=== PATIENT | male | born 2000 | race Two or more races ===

== ENCOUNTER 2021-07-11 14:47 | Inpatient (IN) | payer BC ==
[~2021-07-11] VITALS: Ht 172.7 cm; Wt 78.0 kg
[2021-07-11 15:31] LABS: BASOPHILS % (AUTO) 0.2 % (0-1); EOSINOPHILS # (AUTO) 0.1 X10'3 (0-0.9); HEMATOCRIT 42.8 % (42.0-52.0); HEMOGLOBIN 14.3 g/dl (14.0-17.9); LYMPHOCYTES # (AUTO) 3.3 X10'3 (1.1-4.8); LYMPHOCYTES % (AUTO) 27.7 % (21-51); MEAN CORPUSCULAR HEMOGLOBIN 27.4 PG (27.0-31.0); MEAN CORPUSCULAR HGB CONC 33.5 g/dL (33.0-36.5); MEAN CORPUSCULAR VOLUME 81.7 FL (78-98); MEAN PLATELET VOLUME 8.5 FL (7.4-10.4); MONOCYTES # (AUTO) 1.1 X10'3 (0-0.9); MONOCYTES % (AUTO) 9.5 % (2-12); NEUTROPHILS # (AUTO) 7.3 X10'3 (1.8-7.7); NEUTROPHILS % (AUTO) 61.6 % (42-75); PLATELET COUNT 226 X10'3 (140-440); RED BLOOD COUNT 5.23 X10'6 (4.70-6.10); RED CELL DISTRIBUTION WIDTH 13.8 % (11.5-14.5); WHITE BLOOD COUNT 11.8 X10'3 (4.5-11.0)
[2021-07-11 15:48] LABS: ALANINE AMINOTRANSFERASE 68 U/L (12-78); ALBUMIN 4.4 G/DL (3.4-5.0); ALBUMIN/GLOBULIN RATIO 1.1 (1.1-1.5); ALKALINE PHOSPHATASE 72 IU/L (20-180); ANION GAP 12 (8-16); ASPARTATE AMINO TRANSFERASE 13 U/L (10-37); BILIRUBIN,TOTAL 1.6 MG/DL (0.1-1.0); BLOOD UREA NITROGEN 14 MG/DL (7-18); BUN/CREATININE RATIO 16.7 (5.4-32.0); CALCIUM 9.2 MG/DL (8.5-10.1); CHLORIDE 102 MMOL/L (99-107); CREATININE 0.84 MG/DL (0.60-1.10); GLUCOSE 91 MG/DL (70-104); LIPASE 132 U/L (73-393); POTASSIUM 3.7 MMOL/L (3.5-5.1); SODIUM 142 MMOL/L (135-145); TOTAL CARBON DIOXIDE 28.1 MMOL/L (24-32); TOTAL PROTEIN 8.4 G/DL (6.4-8.2); eGFR > 90 ML/MIN
[2021-07-11] MEDS ORDERED: morphine 4 MG/ML inj SYRINge IV ONE (16:55)
[2021-07-11] MEDS ORDERED: ondansetron/PF 4mg/2ml inj IV ONE (16:55)
[2021-07-11] MEDS ORDERED: iohexol 300mg/ml 100ml inj. ONE (17:52)
[2021-07-11] MEDS ORDERED: piperacillin/tazo 3.375gm/50ml 50 ML IV ONE (19:05)
--- NOTE | 2021-07-11 19:23 | NUR ---
Dr. Browne in with patient.
--- NOTE | 2021-07-11 19:25 | NUR ---
[facility] cld to give report to ORQUIDEA Quintero and per provider he is aware of results and does not need to talke with the radiologist.
[2021-07-11] MEDS ORDERED: ondansetron/PF 4mg/2ml inj IV PRN (19:30)
[2021-07-11] MEDS ORDERED: normal saline 500ml IV soln 500 ML IV ONE (19:35)
[2021-07-11] MEDS ORDERED: LOP12.5T PO (19:37)
[2021-07-11] MEDS: normal saline 1000ml 1,000 ML IV SCH (19:44)
[2021-07-11] MEDS ORDERED: BUPIVAcaine/PF 2.5 mg/ml (0.25%) 30ml vial ONE (22:43)
[2021-07-12] VITALS (19 sets, daily range): BP systolic 102–133; BP diastolic 63–88
[2021-07-12] MEDS: piperacillin/tazo 3.375gm/50ml 50 ML IV SCH ×4 (00:27→23:58)
[2021-07-12 01:16] LABS: BASOPHILS % (AUTO) 0.4 % (0-1); EOSINOPHILS # (AUTO) 0.2 X10'3 (0-0.9); EOSINOPHILS % (AUTO) 2.1 % (0-6); HEMATOCRIT 39.6 % (42.0-52.0); HEMOGLOBIN 13.6 g/dl (14.0-17.9); LYMPHOCYTES # (AUTO) 3.1 X10'3 (1.1-4.8); LYMPHOCYTES % (AUTO) 39.2 % (21-51); MEAN CORPUSCULAR HEMOGLOBIN 27.8 PG (27.0-31.0); MEAN CORPUSCULAR HGB CONC 34.2 g/dL (33.0-36.5); MEAN CORPUSCULAR VOLUME 81.2 FL (78-98); MEAN PLATELET VOLUME 8.4 FL (7.4-10.4); MONOCYTES # (AUTO) 0.8 X10'3 (0-0.9); MONOCYTES % (AUTO) 10.1 % (2-12); NEUTROPHILS # (AUTO) 3.8 X10'3 (1.8-7.7); NEUTROPHILS % (AUTO) 48.2 % (42-75); PLATELET COUNT 202 X10'3 (140-440); RED BLOOD COUNT 4.88 X10'6 (4.70-6.10); RED CELL DISTRIBUTION WIDTH 13.7 % (11.5-14.5); WHITE BLOOD COUNT 7.9 X10'3 (4.5-11.0)
[2021-07-12 01:35] LABS: ALANINE AMINOTRANSFERASE 61 U/L (12-78); ALBUMIN/GLOBULIN RATIO 1.1 (1.1-1.5); ALKALINE PHOSPHATASE 62 IU/L (20-180); ANION GAP 10 (8-16); ASPARTATE AMINO TRANSFERASE 24 U/L (10-37); BILIRUBIN,TOTAL 1.3 MG/DL (0.1-1.0); BLOOD UREA NITROGEN 11 MG/DL (7-18); BUN/CREATININE RATIO 12.6 (5.4-32.0); CALCIUM 9.3 MG/DL (8.5-10.1); CHLORIDE 103 MMOL/L (99-107); CREATININE 0.87 MG/DL (0.60-1.10); GLUCOSE 84 MG/DL (70-104); POTASSIUM 4.1 MMOL/L (3.5-5.1); SODIUM 140 MMOL/L (135-145); TOTAL CARBON DIOXIDE 27.1 MMOL/L (24-32); TOTAL PROTEIN 7.6 G/DL (6.4-8.2); eGFR > 90 ML/MIN
[2021-07-12] MEDS: normal saline 1000ml 1,000 ML IV SCH ×2 (05:30→06:38)
[2021-07-12 07:20] LABS: PRE OP PARTIAL THROMB. TIME 31 SECONDS (22-32)
[2021-07-12] MEDS ORDERED: METO-395 PO (07:59)
[2021-07-12] MEDS ORDERED: famotidine/PF 10 mg/ml inj IV ONE (08:00)
--- NOTE | 2021-07-12 08:53 | NUR ---
pT . IN PRESURGICAL SHOWER.
[2021-07-12] MEDS ORDERED: metoprolol succinate 25mg (24-HOUR) SR. Tablet PO SCH ×2 (09:08→18:31)
--- NOTE | 2021-07-12 09:49 | NUR ---
Home med. addressed and came up on emar. Pt. states he has no greens keeper or afib that he knows of. He states he was prescribed the 25mg daily metoprolol for HTN and he takes it at night but has not taken for 2 days. BP and HR assessed and WNL. HR 62. Uncomfortable administering this medication at this time. Call charge in OR. States hold until nursing staff able to speak with anesthesiologist. Will leave on EMAR and note in pre-op checklist.
--- NOTE | 2021-07-12 11:43 | NUR ---
Report called to recovery. Pt. taken off floor to OR for lap. appi. with Zuri.
[2021-07-12] MEDS ORDERED: BUPIVAcaine/PF 2.5 mg/ml (0.25%) 30ml vial ONE (12:03)
[2021-07-12] MEDS ORDERED: morphine 4 MG/ML inj SYRINge IV PRN (12:20)
[2021-07-12] MEDS ORDERED: fentaNYL/PF 50MCG/1 ML 2ML syringe IV PRN (12:20)
[2021-07-12] MEDS ORDERED: labetalol 20mg/4ml (5mg/ml) syringe IV PRN (12:20)
[2021-07-12] MEDS ORDERED: ringers solution, lacted 1,000 ML IV SCH (12:20)
[2021-07-12] MEDS ORDERED: ondansetron/PF 4mg/2ml inj IV PRN (12:20)
[2021-07-12] MEDS ORDERED: hydrALAZINE 20mg/ml inj. IV PRN (12:20)
[2021-07-12] MEDS ORDERED: morphine 2 MG/ML inj. syringe IV PRN (12:20)
[2021-07-12] MEDS ORDERED: propofol inj 20 ML IV ONE (12:24)
[2021-07-12] MEDS ORDERED: dexamethasone sod phosphate 10mg/ml inj ONE (12:24)
[2021-07-12] MEDS ORDERED: midazolam 1 mg/ML 2ml injection ONE (12:24)
[2021-07-12] MEDS ORDERED: sevoflurane 250ml liquid IH ONE (12:24)
[2021-07-12] MEDS ORDERED: LIDOcaine 2% (20mg/ml) 5ml vial ONE (12:24)
[2021-07-12] MEDS ORDERED: fentaNYL/PF 50MCG/1 ML 2ML syringe ONE (12:24)
[2021-07-12] MEDS ORDERED: glycopyrrolate 0.2mg/ml inj ONE (12:25)
[2021-07-12] MEDS ORDERED: ondansetron/PF 4mg/2ml inj ONE (12:25)
[2021-07-12] MEDS ORDERED: neostigmine methylsulfate 1 MG/ML 10ml vial ONE (12:25)
[2021-07-12] MEDS ORDERED: rocuronium 10mg/ml inj IV ONE (12:25)
[2021-07-12] MEDS ORDERED: metoprolol tartrate 1mg/ml inj IV ONE (12:37)
--- NOTE | 2021-07-12 13:55 | NUR ---
Received from OR via [facility], accompanied by Anesthesiologist and report given by Anesthesiologist. PATIENT WAKING UP, NO S/S OF PAIN, V/S WNL, SCD ON, 18G TO RUE, LAP SURGICAL SITES TO ABDOMEN CDI
[2021-07-12] MEDS: fentaNYL/PF 50MCG/1 ML 2ML syringe IV PRN ×2 (14:16→14:20)
--- NOTE | 2021-07-12 14:35 | NUR ---
PATIENT A&OX4, DENIES PAIN, V/S WNL, SCD ON, 20G TO RUE, LAP SURGICAL SITES TO ABDOMEN CDI. PATIENT TAKEN TO ROOM 350B WITH ALL BELONGINGS AND HOOKED UP TO MONITORS IN ROOM AND GIVEN CALL LIGHT, REPORT GIVEN TO RN WHO HAS TAKEN OVER PATIENT CARE
[2021-07-12] MEDS: morphine 2 MG/ML inj. syringe IV PRN ×3 (15:09→19:22)
--- NOTE | 2021-07-12 18:18 | NUR ---
Gave report to Natalie HERRERA.
--- NOTE | 2021-07-12 18:30 | NUR ---
Patient in room [facility]. I have received report from Beatriz HERRERA and had the opportunity to ask questions and assume patient care.
[2021-07-12] MEDS: lactobacillus rhamnosus 10,000 MMU CELLS/CAPSULE PO SCH (19:09)
[2021-07-12] MEDS ORDERED: metoprolol tartrate 12.5mg (1/2 tablet) PO ONE (20:00)
[2021-07-13] MEDS: HYDROcodone/acetaminophen 5mg/325mg tablet PO PRN ×4 (00:07→14:19)
[2021-07-13] MEDS: normal saline 1000ml 1,000 ML IV SCH ×2 (00:10→11:30)
[2021-07-13 04:00] VITALS: BP 122/49
--- NOTE | 2021-07-13 06:15 | NUR ---
Problems reprioritized. Patient report given, questions answered & plan of care reviewed with Lillie HERRERA.
--- NOTE | 2021-07-13 06:30 | NUR ---
Patient in room [facility]. I have received report from Natalie carmona and had the opportunity to ask questions and assume patient care.
[2021-07-13 06:36] LABS: BASOPHILS % (AUTO) 0 % (0-1); EOSINOPHILS % (AUTO) 0 % (0-6); HEMATOCRIT 39.6 % (42.0-52.0); HEMOGLOBIN 13.7 g/dl (14.0-17.9); LYMPHOCYTES # (AUTO) 1.2 X10'3 (1.1-4.8); LYMPHOCYTES % (AUTO) 11.7 % (21-51); MEAN CORPUSCULAR HEMOGLOBIN 28.1 PG (27.0-31.0); MEAN CORPUSCULAR HGB CONC 34.6 g/dL (33.0-36.5); MEAN CORPUSCULAR VOLUME 81.3 FL (78-98); MEAN PLATELET VOLUME 8.5 FL (7.4-10.4); MONOCYTES # (AUTO) 0.9 X10'3 (0-0.9); MONOCYTES % (AUTO) 8.8 % (2-12); NEUTROPHILS # (AUTO) 7.8 X10'3 (1.8-7.7); NEUTROPHILS % (AUTO) 79.5 % (42-75); PLATELET COUNT 238 X10'3 (140-440); RED BLOOD COUNT 4.88 X10'6 (4.70-6.10); RED CELL DISTRIBUTION WIDTH 13.5 % (11.5-14.5); WHITE BLOOD COUNT 9.9 X10'3 (4.5-11.0)
[2021-07-13 06:53] LABS: ALANINE AMINOTRANSFERASE 52 U/L (12-78); ALBUMIN 3.9 G/DL (3.4-5.0); ALKALINE PHOSPHATASE 57 IU/L (20-180); ANION GAP 7 (8-16); ASPARTATE AMINO TRANSFERASE 13 U/L (10-37); BLOOD UREA NITROGEN 8 MG/DL (7-18); BUN/CREATININE RATIO 9.3 (5.4-32.0); CALCIUM 9.5 MG/DL (8.5-10.1); CHLORIDE 105 MMOL/L (99-107); CREATININE 0.86 MG/DL (0.60-1.10); GLUCOSE 111 MG/DL (70-104); POTASSIUM 3.6 MMOL/L (3.5-5.1); SODIUM 140 MMOL/L (135-145); TOTAL CARBON DIOXIDE 28.2 MMOL/L (24-32); TOTAL PROTEIN 7.8 G/DL (6.4-8.2); eGFR > 90 ML/MIN
[2021-07-13] MEDS: lactobacillus rhamnosus 10,000 MMU CELLS/CAPSULE PO SCH (07:20)
[2021-07-13] MEDS: piperacillin/tazo 3.375gm/50ml 50 ML IV SCH (07:20)
[2021-07-13 08:11] VITALS: BP 109/67
[2021-07-13 14:09] VITALS: BP 117/65
--- NOTE | 2021-07-13 14:56 | NUR ---
pt is stable for discharge, iv is DC and cannula intact, all discharge info went over and signed, pt had no further questions, all belongings taken with pt, pt was wheeled down in wheel chair and left in private vehicle.
[2021-07-13] MEDS ORDERED: metoprolol succinate 25mg (24-HOUR) SR. Tablet PO SCH (21:00)
== END 2021-07-13 14:57 | disposition home or self-care (01) | DRG 343 ==
LOC: ER 14:48 → EEVIPCON 14:48 → ED HOLD 19:32 → EDBEDREQ 22:49 → SUR 3N 07-12 03:07
PROVIDERS: ADMIT Internal Medicine; ATTEND Internal Medicine
PROC: BW211ZZ Computerized Tomography (CT Scan) of Abdomen and Pelvis using Low Osmolar Contrast (ICD-10-PCS; 2021-07-11)
PROC: 0DTJ4ZZ Resection of Appendix, Percutaneous Endoscopic Approach (ICD-10-PCS; principal; 2021-07-12 12:24)
DX: K35.80 Unspecified acute appendicitis (principal); I10 Essential (primary) hypertension; Z20.822 Contact with and (suspected) exposure to COVID-19
CPT/HCPCS: 96374; 96375; 99285; Z7506; Z7508; 36415; 74177; 80053; 82948; 83690; 85025; 85610; 85730; 87081; 87635; A4215; A4314; A4618; A6402; A7000; C9803; G0378; J1100; J2250; J2270; J2405; J2543; J2704; J2710; J3010; J3490; J7030; J7040; J7120; Q9967

== ENCOUNTER 2022-03-19 10:08 | Emergency (ER) | payer BC ==
[~2022-03-19] VITALS: Ht 172.7 cm; Wt 77.3 kg
[~2022-03-19 10:08] MED LIST: METO-395 PO
[2022-03-19 10:51] VITALS: BP 153/90
[2022-03-19] MEDS ORDERED: orphenadrine citrate 60mg/2ml inj. IM ONE (11:00)
[2022-03-19] MEDS ORDERED: ketorolac trometh inj. 60 MG/2 ML VIAL IM ONE (11:00)
[2022-03-19] MEDS ORDERED: HYDROcodone/acetaminophen 5mg/325mg tablet PO ONE (11:00)
[2022-03-19] MEDS ORDERED: CYCL-394 PO (11:00)
[2022-03-19] MEDS ORDERED: IBUP-1986 PO (11:00)
== END 2022-03-19 11:27 | disposition home or self-care (01) ==
LOC: ER 10:08
DX: S39.012A Strain of muscle, fascia and tendon of lower back, initial encounter (principal); M54.32 Sciatica, left side; Z79.899 Other long term (current) drug therapy
CPT/HCPCS: 96372; 99284; J1885; J2360